=== PATIENT | male | born 1945 | race Caucasian/White ===

== ENCOUNTER → 2016-11-20 | Outpatient (CLI) | payer OTHER ==
[~2016-11-20] MED LIST: Diabeta,Micronase PO; HUMALOG100 UNITS/ SC; LANTUS 3 M100 UNITS/ SC; Lopressor PO; NORVASC5 MG PO; PLAVIX75 MG; PLAVIX75 MG PO; ZESTRIL,PRINIVI10 M1 PO; Zantac PO; Zocor PO; [UNRECOGNIZED DRUG - OTHER]; amlodipine; glyburide; lisinopril; metoprol; simvastatin
[2016-11-20 12:47] LABS: BASE EXCESS 2.3 mEq/L (-3 to +3); BICARBONATE 26.5 mEq/L (22-26); CARBOXY HGB 4.6 % (0-5); METHEMOGLOBIN 0.7 % (0-1.5); PCO2 39 mm Hg (35-45); PO2 74 mm Hg (80-100); pH 7.44 (7.35-7.45)
[2016-11-20 12:48] LABS: COMMENTS - BLOOD GASES A+C+; DEVICE RA; FI02 21 %; O2 FLOW 0 L/MIN; SITE RR; TOTAL RESP RATE 18 resp/min
== END | disposition home or self-care (01) ==
LOC: RES 12:23
PROVIDERS: Internal Medicine Nephrology
DX: N18.3 Chronic kidney disease, stage 3 (moderate) (principal); D75.1 Secondary polycythemia
CPT/HCPCS: 36600; 82803

== ENCOUNTER → 2018-03-04 | Outpatient (CLI) | payer MEDICARE, OTHER ==
[~2018-03-04] MED LIST changes: +AMARYL2 MG PO; +HUMALOG KW200 UNIT/1 SC; -HUMALOG100 UNITS/ SC; +LASIX40 MG PO; +LOPRESSOR100 M1 PO; +NORVASC10 MG PO; +TOUJEO SOL300 UNIT/1 SC; +TRULICITY0.75 MG/0. SC; +ZANTAC150 MG PO
== END | disposition home or self-care (01) ==
LOC: CDC 08:59
DX: Z01.810 Encounter for preprocedural cardiovascular examination (principal); R91.1 Solitary pulmonary nodule; I44.0 Atrioventricular block, first degree
CPT/HCPCS: 93000

== ENCOUNTER 2018-03-11 08:31 | Day surgery (SDC) | payer OTHER ==
[~2018-03-11] VITALS: Ht 177.8 cm; Wt 102.1 kg
[2018-03-11 09:02] VITALS: BP 159/72
[2018-03-11] MEDS ORDERED: HYDROCODON-ACE1 EAC7 PO (11:46)
[2018-03-11] MEDS ORDERED: COLACE100 MG PO (11:46)
[2018-03-11 12:13] VITALS: BP 178/81
[2018-03-11 12:53] VITALS: BP 150/70
[2018-03-13 14:46] LABS: Flow Number of Markers 22 (()); Flow Spec Viability 38 % (()); Flow Specimen Type LYMPH NODE (())
== END 2018-03-11 13:00 | disposition home or self-care (01) ==
LOC: SDC
PROVIDERS: Thoracic Surgery (Cardiothoracic Vascular Surgery)
PROC: 07B74ZX Excision of Thorax Lymphatic, Percutaneous Endoscopic Approach, Diagnostic (ICD-10-PCS; principal; 2018-03-11)
DX: C34.91 Malignant neoplasm of unspecified part of right bronchus or lung (principal); C77.1 Secondary and unspecified malignant neoplasm of intrathoracic lymph nodes; E11.9 Type 2 diabetes mellitus without complications; I10 Essential (primary) hypertension; K21.9 Gastro-esophageal reflux disease without esophagitis; Z86.73 Personal history of transient ischemic attack (TIA), and cerebral infarction without residual deficits; Z87.891 Personal history of nicotine dependence
CPT/HCPCS: 82948; 85610; 85730; 86850; 86900; 86901; 86920; 88305; 88341 TC; 88342 TC; J0690; J1170; J2405; J3010; S0020

== ENCOUNTER 2018-06-01 11:15 | Inpatient (IN) | payer OTHER ==
[~2018-06-01] VITALS: Ht 180.3 cm; Wt 85.5 kg
[~2018-06-01 11:15] MED LIST changes: +COLACE100 MG PO; +COMPAZINE10 MG PO; +HYDROCODON-ACE1 EAC7 PO
[2018-06-01 13:05] LABS: HEMATOCRIT 28.6 % (38.0-50.0); HEMOGLOBIN 9.5 G/DL (12.5-16.6); MCH 28.5 PG (29.0-34.0); MCHC 33.2 G/DL (30.0-36.0); NRBC (%) 0.4 /100 WBC (0-0); RBC DIS.WIDTH-CV 22.4 % (11.8-14.6); RBC DIS.WIDTH-SD 65.4 % (39-53); RED BLOOD COUNT 3.33 M/uL (4.00-5.50)
[2018-06-01 13:10] LABS: BASOPHIL (%) 0.8 % (0-1); EOSINOPHIL (%) 0.8 % (0-5); IMMATURE GRANULOCYTE (%) 0.6 % (0.0-0.7); LYMPHOCYTE (%) 10.4 % (15-42); LYMPHOCYTE COUNT 0.5 K/uL (1.0-2.8); MONOCYTE (%) 12.7 % (3-12); MONOCYTE COUNT 0.6 K/uL (0-0.8); NEUTROPHIL (%) 74.7 % (45-76); NEUTROPHIL COUNT 3.7 K/uL (1.8-6.4)
[2018-06-01 13:12] LABS: MCV 85.9 FL (86-99); PLATELET COUNT 242 K/uL (156-360)
[2018-06-01 13:17] LABS: ALBUMIN 2.7 g/dL (3.2-4.8); CHLORIDE 94 mEq/L (99-109); SODIUM 140 mEq/L (136-147)
[2018-06-01 13:20] LABS: GLUCOSE 208 mg/dL (70-99); TOTAL PROTEIN 5.8 g/dL (6.4-8.3)
[2018-06-01 13:22] LABS: TOTAL BILIRUBIN 1.6 mg/dL (0.0-1.0)
[2018-06-01 13:23] LABS: ALKALINE PHOSPHATASE 72 IU/L (3-129)
[2018-06-01 13:24] LABS: CREATININE 1.3 mg/dL (0.6-1.3); GFR ESTIMATE (CALCULATED) 57 mL/min/ (58.99-99999)
[2018-06-01 13:25] LABS: AST (GOT) 14 IU/L (2-34); DIRECT BILIRUBIN 0.9 mg/dL (0.0-0.3); UREA NITROGEN (BUN) 11 mg/dL (9-23)
[2018-06-01 13:26] LABS: ALT (GPT) 11 IU/L (3-49)
[2018-06-01] MEDS ORDERED: PROTONIX40 MG PO (13:54)
[2018-06-01] MEDS ORDERED: DUONEB 2.5-0.5 M3 ML AEROSOL (13:54)
[2018-06-01] MEDS ORDERED: OMEPRAZOLE40 M1 PO (13:55)
[2018-06-01] MEDS ORDERED: ZOFRAN ODT8 MG PO (13:55)
[2018-06-01 14:34] LABS: APPEARANCE CLEAR ((CLEAR)); BILIRUBIN NEGATIVE; BLOOD NEGATIVE; COLOR YELLOW ((YELLOW)); GLUCOSE (STRIP) >=500; KETONES 20; LEUKOCYTES NEGATIVE; NITRITE NEGATIVE; PROTEIN (STRIP) 100; SPECIFIC GRAVITY 1.012 (1.000-1.030)
[2018-06-01 14:46] LABS: BACTERIA NONE SEEN /HPF; EPITHELIAL CELLS NONE SEEN /HPF; MUCUS TRACE /LPF; RED BLOOD CELLS NONE SEEN /HPF (0-5); UCUL ADDED? NO; WAXY CASTS 0-5 /LPF; WHITE BLOOD CELLS 0-5 /HPF (0-5)
[2018-06-01 17:35] VITALS: BP 148/73
[2018-06-01 20:00] VITALS: BP 146/70
[2018-06-02] VITALS (7 sets, daily range): BP systolic 105–145; BP diastolic 59–69
[2018-06-02 05:49] LABS: HEMATOCRIT 29.3 % (38.0-50.0); HEMOGLOBIN 9.3 G/DL (12.5-16.6); MCH 27.6 PG (29.0-34.0); MCHC 31.7 G/DL (30.0-36.0); MCV 86.9 FL (86-99); NRBC (%) 0.5 /100 WBC (0-0); PLATELET COUNT 216 K/uL (156-360); RBC DIS.WIDTH-CV 22.9 % (11.8-14.6); RBC DIS.WIDTH-SD 68.1 % (39-53); RED BLOOD COUNT 3.37 M/uL (4.00-5.50); WHITE BLOOD COUNT 4.3 K/uL (4.1-10.2)
[2018-06-02 06:00] LABS: CHLORIDE 97 MEQ/L (99-109); CREATININE 1.1 MG/DL (0.6-1.3); GFR ESTIMATE (CALCULATED) > 59 mL/min/ (58.99-99999); GLUCOSE 197 mg/dL (70-99); POTASSIUM 3.1 MEQ/L (3.7-5.4); SODIUM 140 MEQ/L (136-147); UREA NITROGEN (BUN) 8 mg/dL (9-23)
[2018-06-03 00:24] VITALS: BP 100/52
[2018-06-03 04:31] VITALS: BP 103/58
[2018-06-03 05:43] LABS: BASOPHIL (%) 0.7 % (0-1); EOSINOPHIL (%) 2.4 % (0-5); EOSINOPHIL COUNT 0.1 K/uL (0-0.3); HEMATOCRIT 27.2 % (38.0-50.0); HEMOGLOBIN 8.7 G/DL (12.5-16.6); IMMATURE GRANULOCYTE (%) 0.9 % (0.0-0.7); LYMPHOCYTE (%) 15.3 % (15-42); LYMPHOCYTE COUNT 0.7 K/uL (1.0-2.8); MCV 87.5 FL (86-99); MONOCYTE (%) 11.8 % (3-12); MONOCYTE COUNT 0.5 K/uL (0-0.8); NEUTROPHIL (%) 68.9 % (45-76); NEUTROPHIL COUNT 3.2 K/uL (1.8-6.4); PLATELET COUNT 228 K/uL (156-360); RBC DIS.WIDTH-CV 23.4 % (11.8-14.6); RBC DIS.WIDTH-SD 70.8 % (39-53); RED BLOOD COUNT 3.11 M/uL (4.00-5.50); WHITE BLOOD COUNT 4.6 K/uL (4.1-10.2)
[2018-06-03 06:11] LABS: CHLORIDE 97 MEQ/L (99-109); GFR ESTIMATE (CALCULATED) > 59 mL/min/ (58.99-99999); GLUCOSE 189 mg/dL (70-99); MAGNESIUM 1.1 mg/dl (1.3-2.7); POTASSIUM 2.9 MEQ/L (3.7-5.4); SODIUM 140 MEQ/L (136-147); UREA NITROGEN (BUN) 6 mg/dL (9-23)
[2018-06-03 07:27] VITALS: BP 109/61
[2018-06-03 11:35] VITALS: BP 120/62
[2018-06-03] MEDS ORDERED: AMARYL1 MG PO (14:41)
[2018-06-03] MEDS ORDERED: CEFTIN500 MG PO (14:59)
[2018-06-03] MEDS ORDERED: AZITHROMYCIN500 M1 PO (15:00)
[2018-06-03 15:17] VITALS: BP 165/75
== END 2018-06-03 16:42 | disposition home or self-care (01) | DRG 872 ==
LOC: EME 11:15 → EDOF 14:00 → ENRESERV 14:06 → 4SOUTH 16:43
PROVIDERS: Emergency Medicine; Hospitalist; Physician Assistant
DX: A41.9 Sepsis, unspecified organism (principal); J20.9 Acute bronchitis, unspecified; J21.9 Acute bronchiolitis, unspecified; C34.90 Malignant neoplasm of unspecified part of unspecified bronchus or lung; E87.6 Hypokalemia; E86.1 Hypovolemia; E86.0 Dehydration; I95.9 Hypotension, unspecified; E11.9 Type 2 diabetes mellitus without complications; I10 Essential (primary) hypertension; E78.5 Hyperlipidemia, unspecified; K21.9 Gastro-esophageal reflux disease without esophagitis; Z86.73 Personal history of transient ischemic attack (TIA), and cerebral infarction without residual deficits; Z87.891 Personal history of nicotine dependence; Z92.21 Personal history of antineoplastic chemotherapy; Z92.3 Personal history of irradiation
CPT/HCPCS: 71045; 71275; 80048; 80076; 81003; 82948; 83605; 83735; 84132 91; 85025; 85027; 87040; 87070; 87077; 87185; 87205; 87449; 93005; 94760; 94799; 99281; 99285; G0378; J0456; J0696; J1650; J1815; J3480; J7030